=== PATIENT | female | born 1950 | race Caucasian/White ===

== ENCOUNTER → 2016-06-24 | Outpatient (CLI) | payer MEDICARE | END | disposition home or self-care (01) | LOC: LAB.O 10:06 | PROVIDERS: ATTEND Internal Medicine Pulmonary Disease | DX: Z94.2 Lung transplant status (principal); Z79.2 Long term (current) use of antibiotics ==

== ENCOUNTER → 2016-07-10 | Outpatient (CLI) | payer MEDICARE | END | disposition home or self-care (01) | LOC: LAB.O 08:50 | PROVIDERS: ATTEND Internal Medicine Pulmonary Disease | DX: Z94.2 Lung transplant status (principal); Z79.899 Other long term (current) drug therapy ==

== ENCOUNTER → 2016-08-28 | Outpatient (CLI) | payer MEDICARE | END | disposition home or self-care (01) | LOC: LAB.O 08:58 | PROVIDERS: ATTEND Internal Medicine Pulmonary Disease | DX: Z79.899 Other long term (current) drug therapy (principal); Z94.2 Lung transplant status ==

== ENCOUNTER → 2016-09-10 | Outpatient (CLI) | payer MEDICARE | END | disposition home or self-care (01) | LOC: GMAL 10:30 | PROVIDERS: ATTEND Family Medicine | DX: E05.00 Thyrotoxicosis with diffuse goiter without thyrotoxic crisis or storm (principal); E55.9 Vitamin D deficiency, unspecified; D51.3 Other dietary vitamin B12 deficiency anemia ==

== ENCOUNTER → 2016-10-22 | Outpatient (CLI) | payer MEDICARE ==
--- NOTE | 2016-10-22 11:55 | RAD ---
EXAM DESCRIPTION: UGI, Small Bowel follow-through CLINICAL HISTORY: 66 years Female, N/V COMPARISON: None. FINDINGS: Total exam dose 126.33 mGy, fluoroscopy time 2.6 minutes, 28 fluoroscopic images including 3 cine clips. There is no esophageal wall or fold thickening. No hiatal hernia is identified. There is no esophageal stricture or diverticulum. Images obtained in the prone BURLESON position show no esophageal dysmotility. No gastroesophageal reflux was observed during this exam. There is no gastric wall or fold thickening. The duodenum bulb and duodenum C-loop are unremarkable. Small bowel follow-through portion of the exam shows no small bowel wall or fold thickening. There is no small bowel dilation, stricture or filling defect. The terminal ileum and ileocecal junction are unremarkable. Oral contrast reached the cecum after approximately 15 minute transit time. IMPRESSION: Slightly rapid small bowel transit time, otherwise unremarkable exam. Electronically signed by: Steven Eisenberg MD 10/22/2016 11:55 AM CDT Workstation: [id number]
== END | disposition home or self-care (01) ==
LOC: RAD 10:48
PROVIDERS: ATTEND Family Medicine
DX: R10.9 Unspecified abdominal pain (principal); R11.0 Nausea

== ENCOUNTER → 2016-10-26 | Outpatient (CLI) | payer MEDICARE | END | disposition home or self-care (01) | LOC: GMAL 14:08 | PROVIDERS: ATTEND Family Medicine | DX: E06.3 Autoimmune thyroiditis (principal); R56.9 Unspecified convulsions ==

== ENCOUNTER 2017-06-12 09:57 | Emergency (ER) | payer MEDICARE, OTHER ==
--- NOTE | 2017-06-12 10:18 | ED.PDOC ---
History of Present Illness - General Chief Complaint: Lower Extremity Injury Stated Complaint: pain ankle right Time Seen by Provider: 06/12/17 10:13 Source: patient - History of Present Illness Initial Comments: Shelley Ervin 67 y/o female stated that while going down steps missed one lost her balance fell and twisted her right nakle and she was able to catch herself from totally falling.Had dull ache right ankle with pain on weight bearing.Had Lung transplant in [place] presently taking immunosuppressant drugs.Denies numbness or weakness. Occurred: just prior to arrival Pain - Lower Extremity: moderate: Right Ankle Method of Injury: twisted Improving Factors: rest Worsening Factors: movement Associated Symptoms: see hpi Allergies/Adverse Reactions: Allergies Metronidazole [From Flagyl] Allergy (Verified 06/12/17 10:24) Morphine Allergy (Verified 06/12/17 10:24) Home Medications: Ambulatory Orders ALPRAZolam [Xanax] 0.5 mg PO BEDTIME 06/12/17 Acetamin W/Cod #3 Tab [Tylenol w/CODEINE #3] 1 ea PO Q8HRS PRN #20 tab 06/12/17 Azithromycin [Zithromax] 500 mg PO MOWEFR 06/12/17 B-Complex W/ Folic Acid [B Complex] 1 tab PO DAILY 06/12/17 Biotin [Super Biotin] 5,000 mcg PO DAILY 06/12/17 Calcium Carbonate-Vitamin D [Calcium + D3 600-200 mg-Unit] 1 tab PO BID Gabapentin [Neurontin] 600 mg PO BID 06/12/17 Lamotrigine 100 mg PO DAILY 06/12/17 Lamotrigine 150 mg PO BEDTIME 06/12/17 Levothyroxine Sodium [Synthroid] 112 mcg PO DAILY 06/12/17 Magnesium [Magnesium 400 mg] 1 tab PO BID 06/12/17 Metoprolol Tartrate 25 mg PO BID 06/12/17 Multiple Vitamins W/ Minerals [Multivitamin Adults] 1 tab PO DAILY 06/12/17 Mycophenolate Mofetil [Cellcept] 750 mg PO BID 06/12/17 Nutritional Supplements [Estroven Pm] 1 tab PO BEDTIME 06/12/17 Pantoprazole Sodium 40 mg PO DAILY 06/12/17 Prednisone 15 mg PO DAILY 06/12/17 Sulfa/Trimeth 800/160 (Ds) Tab [Bactrim DS] 1 tablet PO MOWEFR 06/12/17 Sumatriptan Succinate [Imitrex] 100 mg PO PRN 06/12/17 Tacrolimus [Prograf] 2 mg PO BEDTIME 06/12/17 Tacrolimus [Prograf] 2.5 mg PO DAILY 06/12/17 Terbinafine HCl [Lamisil] 250 mg PO DAILY 06/12/17 Tramadol HCl 50 mg PO PRN 06/12/17 Valganciclovir HCl [Valganciclovir] 450 mg PO DAILY 06/12/17 Zinc 50 mg PO DAILY 06/12/17 Review of Systems - Review of Systems Constitutional: States: no symptoms reported EENTM: States: no symptoms reported Respiratory: States: no symptoms reported Cardiology: States: no symptoms reported Gastrointestinal/Abdominal: States: diarrhea - for 3 weeks treated for c.diff Genitourinary: States: no symptoms reported Musculoskeletal: States: see HPI Skin: States: no symptoms reported Neurological: States: no symptoms reported Hematologic/Lymphatic: States: anemia - from immunosuppressant drugs Past Medical History (General) - Patient Medical History Hx Hypertension: Yes Hx Other PMH: Yes - idiopathic pulmonary fibrosis,fibromyalgia Surgical History: other - lung transplant,c-spine,hysterectomy - Social History Hx Alcohol Use: No Hx Substance Use: No Hx Depression: No Feels Threatened In Home Enviroment: No Feels Threatened In a Relationship: No Hx Physical Abuse: No Hx Emotional Abuse: No Hx Suspected Abuse: No - Activities of Daily Living Patient Lives Alone: No - Grooming Ability: Standby Assistance Toileting Ability: Independent Family Medical History - Family History Mother Hx Family Asthma: Yes - dad-copd() Hx Family;Other: mom-multiple sclerosis and myasthenia gravis Father Family History: Unknown Living Status: Hx Family;Other: COPD Physical Exam - Physical Exam General Appearance: Alert, Comfortable, No apparent distress Eyes, Ears, Nose, Throat: PERRL/EOMI, normal ENT inspection, pharynx normal Neck: non-tender, full range of motion, supple Cardiovascular/Respiratory: regular rate, rhythm, no M/R/G, normal peripheral pulses Gastrointestinal/Abdominal: non-tender, no organomegaly Back: no CVA tenderness, no vertebral tenderness Thigh/Hip: normal inspection, non-tender Leg: non-tender, no evidence of injury Knee: non-tender, no evidence of injury Ankle: bone tenderness - right ankle, limited ROM - painful right ankle, pain - right ankle, soft tissue tenderness - righ ankle, swelling - right lateral malleolus Progress - Progress Progress: 06/12/17 10:27 Last Vital Signs Temp 97 F L 06/12/17 10:19 Pulse 58 L 06/12/17 10:19 Resp 20 06/12/17 10:19 BP 138/94 06/12/17 10:19 Pulse Ox 95 06/12/17 10:19 - EKG/XRAY/CT XRAY: ankle - right -fracture non displaced lateral malleolus Departure - Departure Clinical Impression: Fracture of lateral malleolus of right fibula Qualifiers: Encounter type: initial encounter Fracture type: closed Fracture alignment: nondisplaced Qualified Code(s): S82.64XA - Nondisplaced fracture of lateral malleolus of right fibula, initial encounter for closed fracture Time of Disposition: 11:09 Disposition: Discharge to Home or Self Care Condition: Fair Departure Forms: ED Discharge - Pt. Copy, Patient Portal Self Enrollment Instructions: DI for Ankle Fracture, Ankle Fracture Referrals: Dominic Lanza III, MD [Primary Care Provider] - 1-2 Weeks Prescriptions: Acetamin W/Cod #3 Tab [Tylenol w/CODEINE #3] 1 ea PO Q8HRS PRN #20 tab PRN Reason: Pain Home Medications: Ambulatory Orders ALPRAZolam [Xanax] 0.5 mg PO BEDTIME 06/12/17 Acetamin W/Cod #3 Tab [Tylenol w/CODEINE #3] 1 ea PO Q8HRS PRN #20 tab 06/12/17 Azithromycin [Zithromax] 500 mg PO MOWEFR 06/12/17 B-Complex W/ Folic Acid [B Complex] 1 tab PO DAILY 06/12/17 Biotin [Super Biotin] 5,000 mcg PO DAILY 06/12/17 Calcium Carbonate-Vitamin D [Calcium + D3 600-200 mg-Unit] 1 tab PO BID Gabapentin [Neurontin] 600 mg PO BID 06/12/17 Lamotrigine 100 mg PO DAILY 06/12/17 Lamotrigine 150 mg PO BEDTIME 06/12/17 Levothyroxine Sodium [Synthroid] 112 mcg PO DAILY 06/12/17 Magnesium [Magnesium 400 mg] 1 tab PO BID 06/12/17 Metoprolol Tartrate 25 mg PO BID 06/12/17 Multiple Vitamins W/ Minerals [Multivitamin Adults] 1 tab PO DAILY 06/12/17 Mycophenolate Mofetil [Cellcept] 750 mg PO BID 06/12/17 Nutritional Supplements [Estroven Pm] 1 tab PO BEDTIME 06/12/17 Pantoprazole Sodium 40 mg PO DAILY 06/12/17 Prednisone 15 mg PO DAILY 06/12/17 Sulfa/Trimeth 800/160 (Ds) Tab [Bactrim DS] 1 tablet PO MOWEFR 06/12/17 Sumatriptan Succinate [Imitrex] 100 mg PO PRN 06/12/17 Tacrolimus [Prograf] 2 mg PO BEDTIME 06/12/17 Tacrolimus [Prograf] 2.5 mg PO DAILY 06/12/17 Terbinafine HCl [Lamisil] 250 mg PO DAILY 06/12/17 Tramadol HCl 50 mg PO PRN 06/12/17 Valganciclovir HCl [Valganciclovir] 450 mg PO DAILY 06/12/17 Zinc 50 mg PO DAILY 06/12/17 Additional Instructions: Follow up with orthopedist of choice 06/14/2017;elevate right ankle 20 degrees at bedtime;ice pack to affected area 20 minutes 4 x a day during waking hours only for 5 days
[2017-06-12 10:24] VITALS: BP 138/94; TEMP 97; O2SAT 95
--- NOTE | 2017-06-12 10:42 | RAD ---
Procedure: XR ANKLE 3 OR MORE VIEWS Exam Date: 06/12/2017 10:25 AM PROGRAM LEAD Ordering Provider: Josleito Doan Clinical Indication: PAIN,SWELLING Comparison: None Findings: There is an obliquely oriented fracture involving the distal fibular diametaphysis. There is no significant displacement. There is 6 mm focus of mineralization within the volar aspect of the tibiotalar joint. This may represent a small displaced fracture fragment. Ankle mortise is symmetric. Soft tissue swelling overlying the lateral malleolus. IMPRESSION: Nondisplaced lateral malleolar fracture. 6 mm intra-articular loose body or more likely a nondisplaced fracture fragment just anterior to the tibiotalar joint space. This could be further assessed with MRI on a short-term basis as clinically warranted. Electronically signed by: Matthias Caraballo MD 06/12/2017 10:41 AM PROGRAM LEAD
[2017-06-12] MEDS ORDERED: HYDROcodone 7.5MG/APAP 325MG 1 EA TAB PO ONE (11:12)
== END 2017-06-12 11:47 | disposition home or self-care (01) ==
LOC: ER 09:57
DX: S82.64XA Nondisplaced fracture of lateral malleolus of right fibula, initial encounter for closed fracture (principal); M79.7 Fibromyalgia; Z94.2 Lung transplant status; I10 Essential (primary) hypertension; Z79.899 Other long term (current) drug therapy; W10.9XXA Fall (on) (from) unspecified stairs and steps, initial encounter; Y92.9 Unspecified place or not applicable

== ENCOUNTER → 2017-06-12 | Outpatient (CLI) | payer MEDICARE, OTHER | LOC: LAB.O 10:48 | PROVIDERS: ATTEND Family Medicine | DX: D70.8 Other neutropenia (principal); D80.3 Selective deficiency of immunoglobulin G [IgG] subclasses; R19.7 Diarrhea, unspecified; Z94.2 Lung transplant status; Z79.899 Other long term (current) drug therapy ==

== ENCOUNTER → 2017-06-16 | Outpatient (CLI) | payer MEDICARE, OTHER ==
--- NOTE | 2017-06-18 14:26 | RAD ---
EXAM DESCRIPTION: Ankle,Right 3 Views CLINICAL HISTORY: 67 years, Female, PAIN COMPARISON: None. TECHNIQUE: AP/lateral/oblique of the right ankle FINDINGS: Oblique fracture of the lateral malleolus is seen with slight lateral displacement of the distal fracture fragment approximately 2 mm. Talar dome and medial malleolus appear intact. Compared to previous study June 12, 2017, no change in alignment is evident. Lateral view shows intact talus and calcaneus. No mid foot malalignment. Small bone fragment is seen along the anterior aspect of the ankle joint and the donor site could be the distal tibia or fibula. IMPRESSION: Fracture distal right fibula with no change in alignment. Electronically signed by: Denilson Snyder MD 06/18/2017 2:25 PM [facility]
== END ==
LOC: RAD 07:42
PROVIDERS: ATTEND Orthopaedic Surgery
DX: S82.831A Other fracture of upper and lower end of right fibula, initial encounter for closed fracture (principal)

== ENCOUNTER → 2017-06-25 | Outpatient (CLI) | payer MEDICARE, OTHER ==
--- NOTE | 2017-06-25 09:21 | RAD ---
EXAM: Ankle,Right 3 Views HISTORY: CLOSED FX OF DISTAL FIBULA COMPARISON: June 16, 2017 TECHNIQUE: Three radiographic views of ankle FINDINGS: Stable appearance of nondisplaced fracture in distal fibula. Bony alignment in right ankle is grossly maintained. Slight cortical irregularity again seen along anterior aspect of tibial plafond. Ankle mortise remains intact. Joint spaces are maintained. No significant malleolus swelling on either side. Minimal joint effusion. IMPRESSION: Stable appearance of nondisplaced fracture in distal fibula, with cortical irregularity along the anterior aspect of tibial plafond. Electronically signed by: Sachin Ko MD 06/25/2017 9:20 AM [facility]
== END ==
LOC: RAD 08:18
PROVIDERS: ATTEND Orthopaedic Surgery
DX: S89.391A Other physeal fracture of lower end of right fibula, initial encounter for closed fracture (principal)

== ENCOUNTER → 2017-07-09 | Outpatient (CLI) | payer MEDICARE, OTHER ==
--- NOTE | 2017-07-09 18:19 | RAD ---
EXAM DESCRIPTION: Ankle,Right 3 Views CLINICAL HISTORY: 67 years, Female, CLOSED FX OF DISTAL FIBULA COMPARISON: Previous study June 25, 2017 TECHNIQUE: AP/lateral/oblique of the right ankle FINDINGS: Fractured distal right fibula/lateral malleolus extending into the ankle joint is unchanged in alignment compared to previous study. Demineralized appearance suggests hyperemia of healing. Subtle callous formation is evident. Medial malleolus appears intact. Soft tissue swelling laterally is mild. No fracture the metatarsal bases. Intact dome of the talus. Lateral view shows no evidence of fracture of the body of the talus or calcaneus. No calcaneal spurring is seen. No ankle joint narrowing or effusion. IMPRESSION: Healing right lateral malleolar fracture. Electronically signed by: Denilson Snyder MD 07/09/2017 6:18 PM [facility]
== END ==
LOC: RAD 08:43
PROVIDERS: ATTEND Orthopaedic Surgery
DX: S89.391D Other physeal fracture of lower end of right fibula, subsequent encounter for fracture with routine healing (principal)

== ENCOUNTER → 2017-07-22 | Outpatient (CLI) | payer MEDICARE, OTHER | LOC: GMAL 16:17 | PROVIDERS: ATTEND Family Medicine | DX: R19.7 Diarrhea, unspecified (principal) ==

== ENCOUNTER → 2017-08-06 | Outpatient (CLI) | payer MEDICARE, OTHER ==
--- NOTE | 2017-08-06 10:20 | RAD ---
EXAM: Ankle,Right 3 Views HISTORY: CLOSED FRACTURE OF DISTAL FIBULA COMPARISON: July 09, 2017 TECHNIQUE: Three radiographic views of ankle FINDINGS: Stable appearance of nondisplaced fracture in distal fibula. No new fracture nor dislocation in remainder of the ankle joint. Tibial plafond and ankle mortise are maintained. Joint spaces are maintained. Stable minimal lateral malleolar swelling with slight joint effusion. IMPRESSION: Stable appearance of distal fibular fracture, with minimal lateral malleolus swelling and slight joint effusion Electronically signed by: Sachin Ko MD 08/06/2017 10:18 AM CDT
== END | disposition home or self-care (01) ==
LOC: RAD 07:52
PROVIDERS: ATTEND Orthopaedic Surgery
DX: S89.391D Other physeal fracture of lower end of right fibula, subsequent encounter for fracture with routine healing (principal)

== ENCOUNTER → 2017-08-19 | Outpatient (CLI) | payer MEDICARE, OTHER | LOC: LAB.O 14:54 | PROVIDERS: ATTEND Internal Medicine Pulmonary Disease | DX: Z94.2 Lung transplant status (principal); Z79.899 Other long term (current) drug therapy ==

== ENCOUNTER 2017-09-06 05:27 | Day surgery (SDC) | payer MEDICARE, OTHER ==
[2017-09-06] MEDS ORDERED: LIDOCAINE 1% PF 2 ML AMP INJ ONE ×2 (05:28→07:23)
[2017-09-06] MEDS ORDERED: TROP 1%/CYCLOPEN 1%/PHENYL 2% DROPS ONE (05:57)
[2017-09-06] MEDS ORDERED: PROPARACAINE 0.5% OPHTH SOL 15 ML BTTL ONE (05:57)
[2017-09-06] MEDS ORDERED: MIDAZOLAM INJ 2 MG/2 ML VIAL ONE ×2 (06:48→07:14)
[2017-09-06] MEDS ORDERED: TOBRAMYCIN SULF 0.3 % OPHT SOL 1 DROP LEFT_EYE ONE ×4 (06:50→07:28)
[2017-09-06] MEDS ORDERED: PROPARACAINE 0.5% OPHTH SOL 15 ML BTTL LEFT_EYE ONE (07:11)
[2017-09-06] MEDS ORDERED: DEXAMETHASONE 0.1% OPHTH SOL 1 DROP LEFT_EYE ONE ×3 (07:24→07:28)
[2017-09-06] MEDS ORDERED: BRIMONIDINE 0.2% OPHTH DROPS LEFT_EYE ONE ×3 (07:24→07:28)
[2017-09-06 07:46] VITALS: TEMP 96.9
[2017-09-06 08:12] VITALS: BP 135/61; O2SAT 96
== END 2017-09-06 08:03 | disposition home or self-care (01) ==
LOC: AMB 05:27
PROVIDERS: ATTEND Ophthalmology
DX: H25.12 Age-related nuclear cataract, left eye (principal); J45.909 Unspecified asthma, uncomplicated; I10 Essential (primary) hypertension; I25.10 Atherosclerotic heart disease of native coronary artery without angina pectoris; K21.9 Gastro-esophageal reflux disease without esophagitis; E66.9 Obesity, unspecified; Z88.5 Allergy status to narcotic agent; Z79.899 Other long term (current) drug therapy
CPT/HCPCS: 00142; 66984; J2250

== ENCOUNTER → 2017-09-16 | Outpatient (CLI) | payer MEDICARE, OTHER ==
--- NOTE | 2017-09-16 15:06 | RAD ---
EXAM DESCRIPTION: Ankle,Right 3 Views CLINICAL HISTORY: 67 years, Female, CLOSED FX OF DISTAL TIB COMPARISON: Previous study August 06, 2017 TECHNIQUE: AP/lateral/oblique of the right ankle FINDINGS: Oblique fracture of the lateral malleolus is seen with bridging callus formation consistent with partial healing. Intact medial malleolus. There is mild soft tissue swelling laterally. Intact proximal metatarsals. Intact dome of the talus. Lateral view shows no evidence of fracture of the body of the talus or calcaneus. No calcaneal spurring is seen. No ankle joint narrowing, spurring or effusion. IMPRESSION: Healing fracture of the distal right fibula. Electronically signed by: Denilson Snyder MD 09/16/2017 3:04 PM CDT
== END ==
LOC: RAD 08:19
PROVIDERS: ATTEND Orthopaedic Surgery
DX: S89.391D Other physeal fracture of lower end of right fibula, subsequent encounter for fracture with routine healing (principal)

== ENCOUNTER → 2017-09-17 | Outpatient (CLI) | payer MEDICARE, OTHER | LOC: LAB.O 09:43 | PROVIDERS: ATTEND Family Medicine | DX: Z94.2 Lung transplant status (principal); Z79.899 Other long term (current) drug therapy ==

== ENCOUNTER 2017-09-20 05:16 | Day surgery (SDC) | payer MEDICARE, OTHER ==
[2017-09-20] MEDS ORDERED: PROPARACAINE 0.5% OPHTH SOL 15 ML BTTL ONE (05:49)
[2017-09-20] MEDS ORDERED: TROP 1%/CYCLOPEN 1%/PHENYL 2% DROPS ONE (05:49)
[2017-09-20] MEDS ORDERED: MIDAZOLAM INJ 2 MG/2 ML VIAL ONE ×3 (07:11→08:21)
[2017-09-20] MEDS ORDERED: LIDOCAINE 1% PF 2 ML AMP INJ ONE (07:36)
[2017-09-20] MEDS ORDERED: BRIMONIDINE 0.2% OPHTH DROPS RIGHT_EYE ONE ×2 (07:43→07:50)
[2017-09-20] MEDS ORDERED: DEXAMETHASONE 0.1% OPHTH SOL 1 DROP RIGHT_EYE ONE ×2 (07:43→07:50)
[2017-09-20] MEDS ORDERED: TOBRAMYCIN SULF 0.3 % OPHT SOL 1 DROP RIGHT_EYE ONE ×2 (07:43→07:50)
== END 2017-09-20 08:16 | disposition home or self-care (01) ==
LOC: AMB 05:16
PROVIDERS: ATTEND Ophthalmology
DX: H25.11 Age-related nuclear cataract, right eye (principal); I10 Essential (primary) hypertension; K21.9 Gastro-esophageal reflux disease without esophagitis; J45.909 Unspecified asthma, uncomplicated; G40.909 Epilepsy, unspecified, not intractable, without status epilepticus; Z87.891 Personal history of nicotine dependence; Z88.5 Allergy status to narcotic agent; Z79.899 Other long term (current) drug therapy
CPT/HCPCS: 00142; 66984; J2250

== ENCOUNTER → 2017-10-01 | Outpatient (CLI) | payer MEDICARE, OTHER | LOC: LAB.O 08:06 | PROVIDERS: ATTEND Internal Medicine Pulmonary Disease | DX: Z94.2 Lung transplant status (principal); Z79.899 Other long term (current) drug therapy ==

== ENCOUNTER → 2017-10-18 | Outpatient (CLI) | payer MEDICARE, OTHER | LOC: LAB.O 08:42 | PROVIDERS: ATTEND Family Medicine | DX: Z94.2 Lung transplant status (principal); Z79.899 Other long term (current) drug therapy ==

== ENCOUNTER → 2017-10-29 | Outpatient (CLI) | payer MEDICARE, OTHER | LOC: LAB.O 08:43 | PROVIDERS: ATTEND Family Medicine | DX: Z79.899 Other long term (current) drug therapy (principal); Z94.2 Lung transplant status ==

== ENCOUNTER → 2017-11-01 | Outpatient (CLI) | payer MEDICARE, OTHER ==
--- NOTE | 2017-11-01 09:14 | RAD ---
EXAM DESCRIPTION: Ankle,Right 3 Views CLINICAL HISTORY: 67 years, Female, CLOSED FX OF DISTAL FIBULA COMPARISON: September 16, 2017, August 06, 2017 TECHNIQUE: Three views right ankle FINDINGS: Slow progressive healing of an oblique fracture of the distal fibula at and just above the ankle mortise is present with minimal residual lucency evident on the oblique view. Bridging callus formation superolaterally is evident. Fracture line is clearly less apparent than seen on previous examination. Maturation of the callus is noted. IMPRESSION: 1. Slow progressive healing of distal fibular fracture with bridging callus evident and decreasing lucency at the fracture site. Complete bony union and resolution of the fracture line has not yet occurred. 2. Intact ankle mortise without new injury. Electronically signed by: Lio Sousa MD 11/01/2017 9:12 AM CDT
== END ==
LOC: RAD 08:25
PROVIDERS: ATTEND Orthopaedic Surgery
DX: S89.391D Other physeal fracture of lower end of right fibula, subsequent encounter for fracture with routine healing (principal)

== ENCOUNTER → 2017-11-05 | Outpatient (CLI) | payer MEDICARE, OTHER | LOC: LAB.O 09:19 | PROVIDERS: ATTEND Internal Medicine Pulmonary Disease | DX: Z94.2 Lung transplant status (principal); Z79.899 Other long term (current) drug therapy ==

== ENCOUNTER → 2017-11-12 | Outpatient (CLI) | payer MEDICARE, OTHER | LOC: LAB.O 09:41 | PROVIDERS: ATTEND Internal Medicine Pulmonary Disease | DX: K58.0 Irritable bowel syndrome with diarrhea (principal); Z94.2 Lung transplant status; Z79.899 Other long term (current) drug therapy ==

== ENCOUNTER → 2017-11-30 | Outpatient (CLI) | payer MEDICARE, OTHER | LOC: LAB.O 09:06 | PROVIDERS: ATTEND Internal Medicine Pulmonary Disease | DX: Z94.2 Lung transplant status (principal); Z79.899 Other long term (current) drug therapy ==

== ENCOUNTER → 2017-12-28 | Outpatient (CLI) | payer MEDICARE, OTHER ==
--- NOTE | 2017-12-28 20:51 | MRI ---
EXAM DESCRIPTION: Cervical Spine: MRI. CLINICAL HISTORY: RADICULOPATHY COMPARISON: Cervical spine MRI scan without and with gadolinium IV contrast 08/15/2010. TECHNIQUE: Multiplanar MRI, multiple sequences, non-contrast High-field.. Technically difficult study due to motion artifact. FINDINGS: ACDF C4-C5. Interbody fusion incomplete with low signal on T1 and T2 sequences. No abnormal fluid accumulation around the hardware. No abnormal marrow signal around the hardware. Right uncinate spur. Mild narrowing of the right neural foramen. Left neuroforamen patent. Canal is patent. Facets unremarkable. ACDF C6-C7. Interbody fusion is almost completely with signal similar to vertebral body bone. Canal and bilateral neural foramina are patent. No abnormal marrow signal around the screws or abnormal fluid accumulation. Normal signal in the facets. Minimal desiccation of the C3-4 disc. Tiny posterior bulge. Bilateral mild neural foraminal narrowing by uncinate spurs. No significant canal narrowing. Facets are unremarkable. C5-C6: Disc desiccation with disc space preserved. Posterior 2 mm bulge but not abutting the cord. Mild canal narrowing. Bilateral neural foramina are patent. Minimal arthrosis in the left facet. C7-T1: Normal signal in the disc with disc space preserved. No bulging. Bilateral facet arthrosis with mild narrowing of the bilateral neural foramina. No canal narrowing. Normal signal in the remaining discs with no bulging. Disc spaces preserved. Canal and neural foramina are patent. Facets are unremarkable. Spinal alignment shows lack of normal lordosis.. No cord compression or cord edema. Atlantoaxial joint is unremarkable. Base of the cerebellar tonsils is above the foramen magnum. Paravertebral soft tissues unremarkable. Vertebral bodies are not compressed at any level. Normal marrow signal in the remaining vertebral bodies and the posterior elements. IMPRESSION: 1. ACDF C4-C5 customary position and near-anatomic alignment. Incomplete bony fusion right uncinate spur and mild narrowing of the right neural foramen. No bony or hardware complications. 2. ACDF C6-C7. Interbody bone fusion is almost completely. Canal and bilateral neural foramina are patent. No bony or hardware complications. 3. Mild bilateral neural foraminal narrowing at C3-4 with minimal desiccation of the disc. Posterior midline bulge of the C5-6 disc with mild canal narrowing. No neural foraminal stenosis. Electronically signed by: Trell Mae MD 12/28/2017 8:50 PM CDT
== END ==
LOC: MRI 14:00
PROVIDERS: ATTEND Psychiatry & Neurology Neurology
DX: M50.11 Cervical disc disorder with radiculopathy, high cervical region (principal); M50.222 Other cervical disc displacement at C5-C6 level

== ENCOUNTER → 2017-12-30 | Outpatient (CLI) | payer MEDICARE, OTHER | LOC: GMAL 10:37 | PROVIDERS: ATTEND Family Medicine | DX: E06.3 Autoimmune thyroiditis (principal) ==

== ENCOUNTER → 2018-02-01 | Outpatient (CLI) | payer MEDICARE, OTHER | LOC: LAB.O 09:02 | PROVIDERS: ATTEND Internal Medicine Pulmonary Disease | DX: Z94.2 Lung transplant status (principal); Z79.899 Other long term (current) drug therapy ==

== ENCOUNTER → 2018-03-17 | Outpatient (CLI) | payer MEDICARE, OTHER | LOC: LAB.O 08:16 | PROVIDERS: ATTEND Internal Medicine Pulmonary Disease | DX: Z94.2 Lung transplant status (principal); Z79.899 Other long term (current) drug therapy ==

== ENCOUNTER → 2018-06-15 | Outpatient (CLI) | payer MEDICARE, OTHER | LOC: LAB.O 07:40 | PROVIDERS: ATTEND Internal Medicine Pulmonary Disease | DX: Z94.2 Lung transplant status (principal); Z79.899 Other long term (current) drug therapy ==

== ENCOUNTER → 2018-07-11 | Outpatient (CLI) | payer MEDICARE, OTHER | LOC: LAB.O 10:03 | PROVIDERS: ATTEND Internal Medicine Pulmonary Disease | DX: Z79.899 Other long term (current) drug therapy (principal); Z94.2 Lung transplant status ==

== ENCOUNTER 2018-08-08 05:52 | Day surgery (SDC) | payer MEDICARE, OTHER ==
[2018-08-08] MEDS ORDERED: MOXIFLOXACIN HCL (OPHTH) 1 DROP DROPS ONE (11:14)
[2018-08-08] MEDS ORDERED: TROP 1%/CYCLOPEN 1%/PHENYL 2% DROPS ONE (11:14)
[2018-08-08] MEDS ORDERED: PROPARACAINE 0.5% OPHTH SOL 15 ML BTTL ONE (11:14)
[2018-08-08] MEDS ORDERED: PROPARACAINE 0.5% OPHTH SOL 15 ML BTTL LEFT_EYE ONE (11:52)
== END 2018-08-08 12:00 | disposition home or self-care (01) ==
LOC: AMB 05:52
PROVIDERS: ATTEND Ophthalmology
DX: H26.492 Other secondary cataract, left eye (principal); Z88.5 Allergy status to narcotic agent; Z88.8 Allergy status to other drugs, medicaments and biological substances

== ENCOUNTER 2018-08-22 06:11 | Day surgery (SDC) | payer MEDICARE, OTHER ==
[2018-08-22] MEDS ORDERED: TROP 1%/CYCLOPEN 1%/PHENYL 2% DROPS ONE ×2 (09:09→12:07)
[2018-08-22] MEDS ORDERED: PROPARACAINE 0.5% OPHTH SOL 15 ML BTTL ONE ×2 (09:09→12:07)
[2018-08-22] MEDS ORDERED: MOXIFLOXACIN HCL (OPHTH) 1 DROP DROPS ONE ×2 (09:09→12:07)
[2018-08-22] MEDS ORDERED: PROPARACAINE 0.5% OPHTH SOL 15 ML BTTL RIGHT_EYE ONE (11:02)
== END 2018-08-22 11:06 | disposition home or self-care (01) ==
LOC: AMB 06:11
PROVIDERS: ATTEND Ophthalmology
DX: H26.491 Other secondary cataract, right eye (principal); Z88.5 Allergy status to narcotic agent; Z88.8 Allergy status to other drugs, medicaments and biological substances

== ENCOUNTER → 2018-08-25 | Outpatient (CLI) | payer MEDICARE, OTHER | LOC: LAB.O 09:06 | PROVIDERS: ATTEND Internal Medicine Pulmonary Disease | DX: R89.1 Abnormal level of hormones in specimens from other organs, systems and tissues (principal); Z94.2 Lung transplant status; Z79.899 Other long term (current) drug therapy ==

== ENCOUNTER → 2018-11-15 | Outpatient (CLI) | payer MEDICARE, OTHER | LOC: LAB.O 09:32 | PROVIDERS: ATTEND Internal Medicine Pulmonary Disease | DX: E34.9 Endocrine disorder, unspecified (principal); R53.82 Chronic fatigue, unspecified; Z79.899 Other long term (current) drug therapy; Z94.2 Lung transplant status ==

== ENCOUNTER → 2018-11-22 | Outpatient (CLI) | payer MEDICARE, OTHER | LOC: LAB.O 12:07 | PROVIDERS: ATTEND Family Medicine | DX: E34.9 Endocrine disorder, unspecified (principal); R53.82 Chronic fatigue, unspecified; Z79.899 Other long term (current) drug therapy ==

== ENCOUNTER 2018-12-13 09:24 | Emergency (ER) | payer MEDICARE, OTHER ==
[2018-12-13] MEDS ORDERED: HYDROcodone 5MG/APAP 325MG 1 EA TAB PO ONE (09:55)
--- NOTE | 2018-12-13 09:58 | ED.PDOC ---
History of Present Illness - General Chief Complaint: Respiratory Problem Stated Complaint: fever,cough Time Seen by Provider: 12/13/18 09:53 Source: patient Exam Limitations: no limitations - History of Present Illness Initial Comments: Patient presents with a cough for three days. She says she has coughed up some blood. She has a pain her right upper back since the coughing began. 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 + fever. + sore throat. No other complaints. Timing/Duration: other - 3 days Severity: moderate Improving Factors: movement Worsening Factors: rest Associated Symptoms: other - as in HPI Allergies/Adverse Reactions: Allergies Metronidazole [From Flagyl] Allergy (Verified 06/12/17 10:24) Morphine Allergy (Verified 06/12/17 10:24) Home Medications: Ambulatory Orders ALPRAZolam [Xanax] 0.5 mg PO BEDTIME 06/12/17 B-Complex W/ Folic Acid [B Complex] 1 tab PO DAILY 06/12/17 Biotin [Super Biotin] 5,000 mcg PO DAILY 06/12/17 Calcium Carbonate-Vitamin D [Calcium + D3 600-200 mg-Unit] 1 tab PO BID 06/12/17 Lamotrigine 100 mg PO BEDTIME 06/12/17 Levothyroxine Sodium [Synthroid] 112 mcg PO DAILY 06/12/17 Magnesium [Magnesium 400 mg] 1 tab PO BID 06/12/17 Multiple Vitamins W/ Minerals [Multivitamin Adults] 1 tab PO DAILY 06/12/17 Mycophenolate Mofetil [Cellcept] 2 capsule PO BID 06/12/17 Pantoprazole Sodium 40 mg PO DAILY 06/12/17 Prednisone 7.5 mg PO DAILY 06/12/17 Sulfa/Trimeth 800/160 (Ds) Tab [Bactrim DS] 1 tablet PO MOWEFR 06/12/17 Sumatriptan Succinate [Imitrex] 100 mg PO PRN PRN 06/12/17 Tacrolimus [Prograf] 1.5 mg PO DAILY 06/12/17 Tramadol HCl 50 mg PO Q4HR PRN 06/12/17 Zinc 50 mg PO DAILY 06/12/17 Acetaminophen [Tylenol] 2 tablet PO Q4HR PRN 12/13/18 Albuterol Sulfate [Proair Hfa] 2 puff INH Q6H PRN 12/13/18 Butalbital-Acetaminophen [Butalbital/Acetaminophen 50-300 mg] 1 tab PO Q6HR PRN 12/13/18 Cholecalciferol [Vitamin D-3] 5,000 unit PO DAILY 12/13/18 Colestipol HCl 1 gm PO DAILY 12/13/18 Furosemide [Lasix] 20 mg PO DAILY 12/13/18 Gabapentin 2 capsule PO BID 12/13/18 Hydralazine HCl [Hydralazine Hydrochloride] 10 mg PO BID 12/13/18 Ipratropium/Albuterol [Duoneb] 3 ml NEB QID PRN 12/13/18 Loperamide Cap [Imodium Cap] 2 mg PO QID PRN 12/13/18 Loratadine [Claritin] 10 mg PO DAILY 12/13/18 Nutritional Supplements [Estroven Pm] 1 tab PO BEDTIME 12/13/18 Propranolol HCl 60 mg PO BID 12/13/18 Risedronate Sodium [Actonel] 35 mg PO WKLY 12/13/18 Tacrolimus [Prograf] 2 mg PO DAILY 12/13/18 Valganciclovir HCl [Valcyte] 450 mg PO MOWEFR 12/13/18 Venlafaxine HCl 37.5 mg PO BID 12/13/18 Review of Systems - Review of Systems Constitutional: States: no symptoms reported EENTM: States: no symptoms reported Respiratory: States: see HPI Cardiology: States: no symptoms reported Gastrointestinal/Abdominal: States: no symptoms reported Genitourinary: States: no symptoms reported Musculoskeletal: States: no symptoms reported Skin: States: no symptoms reported Neurological: States: no symptoms reported Endocrine: States: no symptoms reported Hematologic/Lymphatic: States: no symptoms reported Past Medical History (General) - Patient Medical History Hx Seizures: Yes Hx Stroke: Yes - TIA Hx Asthma: Yes Hx of COPD: Yes Hx Congestive Heart Failure: No Hx Hypertension: Yes Hx Thyroid Disease: Yes Hx Diabetes: No Hx Gastroesophageal Reflux: Yes Hx MRSA: No Surgical History: Hysterectomy - Vaccination History Hx Influenza Vaccination: Yes Hx Pneumococcal Vaccination: Yes - Social History Hx Tobacco Use: Yes Hx Alcohol Use: No Hx Substance Use: No Hx Depression: No Hx Physical Abuse: No Hx Emotional Abuse: No Hx Suspected Abuse: No Family Medical History - Family History Mother Hx Family Asthma: Yes - dad-copd() Hx Family;Other: mom-multiple sclerosis and myasthenia gravis Father Family History: Unknown Living Status: Hx Family;Other: COPD Physical Exam - Physical Exam General Appearance: Alert Eye Exam: bilateral normal Ears, Nose, Throat: normal ENT inspection Neck: non-tender, full range of motion, supple Respiratory: lungs clear, normal breath sounds Cardiovascular/Chest: normal peripheral pulses, regular rate, rhythm Gastrointestinal/Abdominal: normal bowel sounds, non tender, soft Back Exam: normal inspection Extremity: normal range of motion, non-tender, normal inspection Progress - Progress Progress: 12/13/18 16:03 Laboratory Tests 12/13/18 12/13/18 12/13/18 10:05 10:30 10:30 WBC 16.2 H RBC 3.87 L Hgb 13.1 Hct 38.0 MCV 98.3 MCH 34.0 H MCHC 34.6 RDW 13.2 Plt Count 216 MPV 6.9 L Absolute Neuts (auto) 13.90 H Absolute Lymphs (auto) 1.00 Absolute Monos (auto) 1.20 H Absolute Eos (auto) 0.10 Absolute Basos (auto) 0.10 Neutrophils % 86.0 H Lymphocytes % 6.0 L Monocytes % 7.2 Eosinophils % 0.5 L Basophils % 0.3 Sodium 135 Potassium 3.9 Chloride 99 L Carbon Dioxide 24 Anion Gap 15.9 BUN 30 H Creatinine 2.31 H BUN/Creatinine Ratio 13.0 Random Glucose 150 H Serum Osmolality 279.1 Lactic Acid Calcium 9.0 Total Bilirubin 1.2 H AST 18 ALT 13 Alkaline Phosphatase 69 Serum Total Protein 6.6 Albumin 4.0 Globulin 2.6 Albumin/Globulin Ratio 1.5 Group A Strep Rapid Negative 12/13/18 11:56 WBC RBC Hgb Hct MCV MCH MCHC RDW Plt Count MPV Absolute Neuts (auto) Absolute Lymphs (auto) Absolute Monos (auto) Absolute Eos (auto) Absolute Basos (auto) Neutrophils % Lymphocytes % Monocytes % Eosinophils % Basophils % Sodium Potassium Chloride Carbon Dioxide Anion Gap BUN Creatinine BUN/Creatinine Ratio Random Glucose Serum Osmolality Lactic Acid 1.0 Calcium Total Bilirubin AST ALT Alkaline Phosphatase Serum Total Protein Albumin Globulin Albumin/Globulin Ratio Group A Strep Rapid CXR showed right sided pneumonia. wbc 16.2. blood and sputum cultures taken. Patient given Rocephin 1 gram IV and Azithromycin 500 mg po. I contacted Dr. Aguirre, her mannequin mounter at [facility] and he recommended transfer to [facility]. They were full at the time of our contact with bed control so called Dr. Aguirre back. He recommended Vancomycin and Cefepime in the meantime. That was given. I called Ashwin Glover about possible admission here and after he consulted with Dr. Parsons, he decided that the patient would be better off transferred. Shortly after that conversation, [facility] called back and said that they had a bed available. Patient was transferred by ambulance to Dr. Aguirre. Departure - Departure Clinical Impression: Pneumonia Disposition: Transfer to Hospital Condition: Fair Departure Forms: ED Discharge - Pt. Copy, Patient Portal Self Enrollment Diet: other - as per hospitalist Activity: as per physical therapy Referrals: Dominic Lanza III, MD [Primary Care Provider] - 1-2 Weeks Home Medications: Ambulatory Orders ALPRAZolam [Xanax] 0.5 mg PO BEDTIME 06/12/17 B-Complex W/ Folic Acid [B Complex] 1 tab PO DAILY 06/12/17 Biotin [Super Biotin] 5,000 mcg PO DAILY 06/12/17 Calcium Carbonate-Vitamin D [Calcium + D3 600-200 mg-Unit] 1 tab PO BID 06/12/17 Lamotrigine 100 mg PO BEDTIME 06/12/17 Levothyroxine Sodium [Synthroid] 112 mcg PO DAILY 06/12/17 Magnesium [Magnesium 400 mg] 1 tab PO BID 06/12/17 Multiple Vitamins W/ Minerals [Multivitamin Adults] 1 tab PO DAILY 06/12/17 Mycophenolate Mofetil [Cellcept] 2 capsule PO BID 06/12/17 Pantoprazole Sodium 40 mg PO DAILY 06/12/17 Prednisone 7.5 mg PO DAILY 06/12/17 Sulfa/Trimeth 800/160 (Ds) Tab [Bactrim DS] 1 tablet PO MOWEFR 06/12/17 Sumatriptan Succinate [Imitrex] 100 mg PO PRN PRN 06/12/17 Tacrolimus [Prograf] 1.5 mg PO DAILY 06/12/17 Tramadol HCl 50 mg PO Q4HR PRN 06/12/17 Zinc 50 mg PO DAILY 06/12/17 Acetaminophen [Tylenol] 2 tablet PO Q4HR PRN 12/13/18 Albuterol Sulfate [Proair Hfa] 2 puff INH Q6H PRN 12/13/18 Butalbital-Acetaminophen [Butalbital/Acetaminophen 50-300 mg] 1 tab PO Q6HR PRN 12/13/18 Cholecalciferol [Vitamin D-3] 5,000 unit PO DAILY 12/13/18 Colestipol HCl 1 gm PO DAILY 12/13/18 Furosemide [Lasix] 20 mg PO DAILY 12/13/18 Gabapentin 2 capsule PO BID 12/13/18 Hydralazine HCl [Hydralazine Hydrochloride] 10 mg PO BID 12/13/18 Ipratropium/Albuterol [Duoneb] 3 ml NEB QID PRN 12/13/18 Loperamide Cap [Imodium Cap] 2 mg PO QID PRN 12/13/18 Loratadine [Claritin] 10 mg PO DAILY 12/13/18 Nutritional Supplements [Estroven Pm] 1 tab PO BEDTIME 12/13/18 Propranolol HCl 60 mg PO BID 12/13/18 Risedronate Sodium [Actonel] 35 mg PO WKLY 12/13/18 Tacrolimus [Prograf] 2 mg PO DAILY 12/13/18 Valganciclovir HCl [Valcyte] 450 mg PO MOWEFR 12/13/18 Venlafaxine HCl 37.5 mg PO BID 12/13/18
--- NOTE | 2018-12-13 10:34 | RAD ---
EXAM DESCRIPTION: Chest,2 Views CLINICAL HISTORY: 68 years Female, cough, fever COMPARISON: CT chest dated September 06, 2014. TECHNIQUE: PA and lateral radiographs of the chest were obtained. FINDINGS: The trachea is deviated slightly to the right. The cardiomediastinal silhouette is within normal limits. The pulmonary vasculature appears grossly unremarkable. Interval development of interstitial and infiltrative changes scattered throughout the right lung more predominantly involving the right upper lobe and lower lobes concerning for underlying pneumonia. No pleural effusions. IMPRESSION: 1. Interval development of patchy interstitial and infiltrative changes scattered throughout the right lung predominantly involving right upper and lower lobes is concerning for underlying pneumonia. Comparison was made to the prior chest CT dated September 06, 2014. 2. No pleural effusions. Electronically signed by: Elie Joe MD 12/13/2018 10:33 AM CDT
[2018-12-13] MEDS ORDERED: cefTRIAXone SODIUM 1 GM in SODIUM CHL 0.9% 50ML MIN-BAG+ 50 ML IVPB ONE (11:40)
[2018-12-13] MEDS ORDERED: AZITHROMYCIN 250 MG TAB PO ONE (11:41)
[2018-12-13] MEDS ORDERED: SODIUM CHLORIDE 0.9% 1000ML 1,000 ML IVS ONE (11:41)
[2018-12-13] MEDS ORDERED: cefTRIAXone SODIUM 1 GM VIAL ONE (11:51)
[2018-12-13] MEDS ORDERED: SODIUM CHL 0.9% 50ML MIN-BAG+ 50 ML IVPB ONE (11:51)
[2018-12-13] MEDS ORDERED: SODIUM CHLORIDE 0.9% 1000ML 1,000 ML IVS PRN (12:52)
[2018-12-13] MEDS ORDERED: VANCOMYCIN HCL INJ 1,000 MG in SODIUM CHLORIDE 0.9% 250ML 250 ML IVPB ONE (15:22)
[2018-12-13] MEDS ORDERED: CEFEPIME 1 GM in SODIUM CHLORIDE 0.9% 50ML 50 ML IVPB ONE (15:23)
[2018-12-13] MEDS ORDERED: SODIUM CHLORIDE 0.9% 50ML 50 ML ONE (15:29)
[2018-12-13] MEDS ORDERED: CEFEPIME 2 GM VIAL ONE (15:29)
[2018-12-13] MEDS ORDERED: VANCOMYCIN HCL INJ 1,000 MG VIAL IVPB ONE (15:56)
[2018-12-13] MEDS ORDERED: SODIUM CHLORIDE 0.9% 250ML 250 ML ONE (15:56)
[2018-12-13 16:26] VITALS: BP 100/57; TEMP 97.9; O2SAT 96
== END 2018-12-13 16:26 | disposition short-term general hospital (02) ==
LOC: ER 09:24
DX: J18.9 Pneumonia, unspecified organism (principal); J44.9 Chronic obstructive pulmonary disease, unspecified; I10 Essential (primary) hypertension; E07.9 Disorder of thyroid, unspecified; K21.9 Gastro-esophageal reflux disease without esophagitis; R56.9 Unspecified convulsions; Z94.2 Lung transplant status; Z87.891 Personal history of nicotine dependence; Z86.73 Personal history of transient ischemic attack (TIA), and cerebral infarction without residual deficits; Z79.899 Other long term (current) drug therapy; Z88.1 Allergy status to other antibiotic agents; Z88.5 Allergy status to narcotic agent
CPT/HCPCS: 36415; 71046; 80053; 83605; 85025; 87040; 87070; 87880; A4216; J0692; J0696; J3370; J7030; J7050; Q0144

== ENCOUNTER → 2019-05-16 | Outpatient (CLI) | payer MEDICARE, OTHER ==
--- NOTE | 2019-05-17 17:57 | MRI ---
EXAM DESCRIPTION: Brain w/o Contrast: MRI. 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 MRI scan of the cervical spine the following day. TECHNIQUE: Multiplanar, high-field MRI unit, multiple diffusion sequences, multiple conventional sequences without contrast. Technically difficult study due to patient motion on multiple sequences. FINDINGS: Bilateral multifocal hyperintense FLAIR and T2-weighted signal in the subcortical white matter frontal parietal and occipital lobes more left than right. Lesion in the right frontal subcortical brain in the vertex is stable. Confluent lesions with similar signal abutting the bilateral ventricular bodies also involving the same lobes symmetric bilaterally.. No hemorrhage, no cerebral edema, no mass-effect. No diffusion restriction. Normal signal in the bilateral basal ganglia. Multifocal hyperintense FLAIR signal more than T2 weighted signal in the [place] of the brainstem is stable since the prior study. No hemorrhage mass effect or diffusion restriction. Normal signal in the bilateral cerebellar hemispheres. No hemorrhage, no parenchymal edema, no mass-effect. Concordance of the diffusion and non-diffusion sequences with no diffusion restriction. Cortical sulci, ventricles, and other CSF spaces, and the subdural spaces are normally configured for patients age. No effacement or displacement. Stable since the prior study. No midline shift. No extra-axial hemorrhage. No change from the prior study. Normal flow signal void in the major vessels of the [place], and the venous sinuses. IACs are symmetric bilaterally. Minimal fluid signal in the left mastoid air cells. Stable since the prior study. No mass effect in the bilateral cerebellopontine angles. Pituitary gland occupies most of the sella. Base of the cerebellar tonsils is above the foramen magnum. Paranasal sinuses are unremarkable.. The bony calvarium is intact. IMPRESSION: 1. Subcortical white matter lesions predominantly bilaterally in the frontoparietal and occipital lobes and more left than right. Fewer confluent periventricular white matter lesions. No association with mass effect, hemorrhage, or diffusion restriction. Stable since the prior study. 2. No lesions in the basal ganglia. Small punctate lesions in the [place] are stable. No hemorrhage. Electronically signed by: Trell Mae MD 05/17/2019 5:56 PM [facility]
== END ==
LOC: MRI 12:58
PROVIDERS: ATTEND Psychiatry & Neurology Neurology
DX: F01.50 Vascular dementia, unspecified severity, without behavioral disturbance, psychotic disturbance, mood disturbance, and anxiety (principal); R90.82 White matter disease, unspecified

== ENCOUNTER → 2019-05-17 | Outpatient (CLI) | payer MEDICARE, OTHER ==
--- NOTE | 2019-05-18 16:48 | MRI ---
EXAM DESCRIPTION: Cervical Spine: MRI. CLINICAL HISTORY: 69 years Female RADICULOPATHY COMPARISON: MRI scan of the cervical spine without gadolinium IV contrast December 2017. TECHNIQUE: Multiplanar, high-field MRI, multiple sequences, non-contrast Cervical spine. FINDINGS: ACDF C4-C7. Magnetic susceptibility artifact associated with the hardware. No soft tissue edema, bone marrow edema, soft tissue mass, or abnormal fluid associated with the hardware. No bony fusion of the disc spaces at C4-C5 or C5-C6. No significant disc space loss. Interbody osseous fusion C6-C7. Canal and right neuroforamen are patent. Spur encroaching on the left neural foramen with moderate to severe narrowing. C3-C4: Disc desiccation and minimal disc space loss. Tiny posterior bulge. Bilateral uncinate spurs. Moderate to severe right neural foraminal narrowing. Left neuroforamen patent. C7-T1: Normal signal in the disc with disc space preserved. Canal patent. Bilateral neural foraminal narrowing by hypertrophic facet arthrosis. Normal signal in the C2-C3 and T1-T2 discs with no bulging. Disc spaces preserved. Canal and neural foramina are patent. Facet joints are unremarkable. Spinal alignment reduced lordosis.. No cord compression or cord edema. Atlantoaxial joint minimal fluid and hypertrophy.. Base of the cerebellar tonsils is at the level of the foramen magnum. Paravertebral soft tissues are negative. Vertebral bodies are not compressed at any level. Normal marrow signal in the remaining vertebral bodies and the posterior elements. IMPRESSION: 1. ACDF C4-C7 with no bony or hardware complications. Spurs are encroaching on the left neural foramina at C6-C7 with moderate to severe narrowing. Correlate for left C7 radiculopathy. Similar to the prior study. 2. Moderate to severe right neural foraminal narrowing at C3-C4 due to right uncinate 8 spurs. Progressed since the prior study. Correlate for right C4 radiculopathy. Electronically signed by: Trell Mae MD 05/18/2019 4:46 PM [facility]
== END ==
LOC: MRI 13:00
PROVIDERS: ATTEND Psychiatry & Neurology Neurology
DX: M50.11 Cervical disc disorder with radiculopathy, high cervical region (principal); M43.22 Fusion of spine, cervical region; M25.78 Osteophyte, vertebrae; M48.02 Spinal stenosis, cervical region

== ENCOUNTER → 2019-07-12 | Outpatient (CLI) | payer MEDICARE, OTHER | DX: Z94.2 Lung transplant status (principal); Z79.899 Other long term (current) drug therapy ==

== ENCOUNTER → 2019-10-27 | Outpatient (CLI) | payer MEDICARE, OTHER ==
[~2019-10-27] MED LIST: ALBUTEROL SULFATE 2.5 MG/3 ML VIAL NEB ONE
== END ==
LOC: RESP 09:56
PROVIDERS: ATTEND Family Medicine
DX: Z94.2 Lung transplant status (principal); E06.9 Thyroiditis, unspecified; D51.3 Other dietary vitamin B12 deficiency anemia; E55.9 Vitamin D deficiency, unspecified; Z79.899 Other long term (current) drug therapy
CPT/HCPCS: 80197; 82306; 82607; 84439; 84443; 84481; 94060; J7611

== ENCOUNTER → 2020-01-30 | Outpatient (CLI) | payer MEDICARE, OTHER | LOC: LAB.O 09:08 | PROVIDERS: ATTEND Internal Medicine Pulmonary Disease | DX: Z94.2 Lung transplant status (principal); Z79.899 Other long term (current) drug therapy ==

== ENCOUNTER → 2020-03-08 | Outpatient (CLI) | payer MEDICARE, OTHER | LOC: LAB.O 12:09 | PROVIDERS: ATTEND Psychiatry & Neurology Neurology | DX: Z94.2 Lung transplant status (principal); G37.9 Demyelinating disease of central nervous system, unspecified; R53.83 Other fatigue; R50.9 Fever, unspecified; M79.7 Fibromyalgia; L81.2 Freckles; M10.9 Gout, unspecified; G44.1 Vascular headache, not elsewhere classified; Z79.899 Other long term (current) drug therapy; M35.1 Other overlap syndromes; G35 Multiple sclerosis; G70.00 Myasthenia gravis without (acute) exacerbation; G04.89 Other myelitis; M54.81 Occipital neuralgia; H46.9 Unspecified optic neuritis; M15.0 Primary generalized (osteo)arthritis; M81.8 Other osteoporosis without current pathological fracture; R53.81 Other malaise; Z74.09 Other reduced mobility; M35.3 Polymyalgia rheumatica; M33.22 Polymyositis with myopathy; G61.81 Chronic inflammatory demyelinating polyneuritis; M54.12 Radiculopathy, cervical region; M54.16 Radiculopathy, lumbar region; I73.00 Raynaud's syndrome without gangrene; G25.89 Other specified extrapyramidal and movement disorders; M06.9 Rheumatoid arthritis, unspecified; D86.9 Sarcoidosis, unspecified; M32.10 Systemic lupus erythematosus, organ or system involvement unspecified; M31.6 Other giant cell arteritis ==

== ENCOUNTER → 2020-03-14 | Outpatient (CLI) | payer MEDICARE, OTHER ==
--- NOTE | 2020-03-15 09:04 | MRI ---
EXAM DESCRIPTION: MRA Head and/or Neck CLINICAL HISTORY: cerebrovascular disease COMPARISON: MRI scan of the brain without contrast May 16. TECHNIQUE: 2D [id number] thin-section axial acquisitions through the brain: Non contrast. MIP reconstructions. FINDINGS: The inferior images of the exam began at the level of the petrous segments of the ICAs. No significant narrowing or stenosis of the petrous segments, cavernous segments, or the segments in the siphon and supraclinoid segments bilaterally. Normal bifurcations to form the middle and anterior cerebral arteries. Anterior communicating artery is patent. Prominent right posterior communicating artery from the right supraclinoid ICA to joint with the right posterior cerebral artery. Only a small contribution to the Post-comm-a from the basilar artery. Left posterior communicating artery not visualized. Distal vertebral arteries join to form the basilar artery to the right of midline. PICA vessels are not seen. Left anterior-inferior cerebellar artery is visualized. Bilateral superior cerebellar arteries are visualized. Most of the basilar artery becomes the left posterior cerebral artery. Small contribution to the right posterior cerebral artery as previously described. No significant stenosis or occlusion, no aneurysm, no mass effect, no vasculitis anterior or posterior circulation, or [place]. IMPRESSION: No significant abnormalities in the anterior posterior circulation. Right posterior communicating artery from the right supraclinoid ICA supplies most of the flow to the right posterior cerebral artery, with minimal contribution from the basilar artery. The posterior communicating artery is not visualized. Electronically signed by: Trell Mae MD 03/15/2020 9:[address] [facility]
== END ==
LOC: MRI 09:00
PROVIDERS: ATTEND Psychiatry & Neurology Neurology
DX: G93.40 Encephalopathy, unspecified (principal); I77.89 Other specified disorders of arteries and arterioles; I67.9 Cerebrovascular disease, unspecified; R41.3 Other amnesia; R41.0 Disorientation, unspecified; G60.3 Idiopathic progressive neuropathy; M51.16 Intervertebral disc disorders with radiculopathy, lumbar region; I10 Essential (primary) hypertension

== ENCOUNTER → 2020-03-26 | Outpatient (CLI) | payer MEDICARE, OTHER ==
--- NOTE | 2020-03-26 14:28 | MRI ---
EXAM: Brain w/oContrast CLINICAL HISTORY: ENCEPHALOPATHY COMPARISON STUDY: MRI brain from a 05/17/2019 TECHNICAL: Multi-sequence, multiplanar non-contrast MRI images were acquired through the brain. FINDINGS: No acute abnormality on the diffusion weighted scan. There is no finding to suggest an acute territorial infarction. There are mild subcortical white matter changes that are similar to the prior study. Two focal punctate areas of signal abnormality are seen within the [place] and also unchanged. There is no mass or mass effect. There is no evidence for hemorrhage. Flow voids are seen within the expected intracranial vessels. Posterior fossa and midline structures are negative. IMPRESSION: 1. No acute intracranial abnormality. 2. Mild bilateral subcortical white matter changes. Differential possibilities of demyelinating process, microvascular ischemic change or other chronic white matter disease. Electronically signed by: Cain Colby MD 03/26/2020 2:26 PM [facility]
== END ==
LOC: MRI 09:59
PROVIDERS: ATTEND Psychiatry & Neurology Neurology
DX: G93.40 Encephalopathy, unspecified (principal); I67.9 Cerebrovascular disease, unspecified; R90.82 White matter disease, unspecified

== ENCOUNTER 2020-04-05 10:29 | Emergency (ER) | payer MEDICARE, OTHER ==
[2020-04-05] MEDS ORDERED: SODIUM CHLORIDE 0.9% (FLUSH) 10 ML SYG IV PRN (10:37)
--- NOTE | 2020-04-05 10:39 | ED.PDOC ---
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 Onset last night, constant since then, describes it as sharp pains in the center of her chest which radiate bilaterally around to her back, currently 6/10 sever ity, worse with taking a deep breath, tried taking her home inhaler without relief. Denies any dyspnea, cough, fevers, chills, sore throat, congestion, abdominal pain, nausea/vomiting/diarrhea. Patient reports history of idiopathic pulmonary fibrosis and underwent left lung transplant in October [address] Ashwin Sen at [facility] in [place]. 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 She is on daily CellCept, Prograf, prednisone. Denies any known cardiac history. Allergies/Adverse Reactions: Allergies Metronidazole [From Flagyl] Allergy (Verified 06/12/17 10:24) Morphine Allergy (Verified 06/12/17 10:24) Home Medications: Ambulatory Orders ALPRAZolam [Xanax] 0.5 mg PO BEDTIME 06/12/17 B-Complex W/ Folic Acid [B Complex] 1 tab PO DAILY 06/12/17 Biotin [Super Biotin] 5,000 mcg PO DAILY 06/12/17 Calcium Carbonate-Vitamin D [Calcium + D3 600-200 mg-Unit] 1 tab PO BID 06/12/17 Lamotrigine 100 mg PO BEDTIME 06/12/17 Levothyroxine Sodium [Synthroid] 112 mcg PO DAILY 06/12/17 Magnesium [Magnesium 400 mg] 1 tab PO BID 06/12/17 Multiple Vitamins W/ Minerals [Multivitamin Adults] 1 tab PO DAILY 06/12/17 Mycophenolate Mofetil [Cellcept] 2 capsule PO BID 06/12/17 Pantoprazole Sodium 40 mg PO DAILY 06/12/17 Prednisone 7.5 mg PO DAILY 06/12/17 Sulfa/Trimeth 800/160 (Ds) Tab [Bactrim DS] 1 tablet PO MOWEFR 06/12/17 Sumatriptan Succinate [Imitrex] 100 mg PO PRN PRN 06/12/17 Tacrolimus [Prograf] 1.5 mg PO DAILY 06/12/17 Tramadol HCl 50 mg PO Q4HR PRN 06/12/17 Zinc 50 mg PO DAILY 06/12/17 Acetaminophen [Tylenol] 2 tablet PO Q4HR PRN 12/13/18 Albuterol Sulfate [Proair Hfa] 2 puff INH Q6H PRN 12/13/18 Butalbital-Acetaminophen [Butalbital/Acetaminophen 50-300 mg] 1 tab PO Q6HR PRN 12/13/18 Cholecalciferol [Vitamin D-3] 5,000 unit PO DAILY 12/13/18 Colestipol HCl 1 gm PO DAILY 12/13/18 Furosemide [Lasix] 20 mg PO DAILY 12/13/18 Gabapentin 2 capsule PO BID 12/13/18 Hydralazine HCl [Hydralazine Hydrochloride] 10 mg PO BID 12/13/18 Ipratropium/Albuterol [Duoneb] 3 ml NEB QID PRN 12/13/18 Loperamide Cap [Imodium Cap] 2 mg PO QID PRN 12/13/18 Loratadine [Claritin] 10 mg PO DAILY 12/13/18 Nutritional Supplements [Estroven Pm] 1 tab PO BEDTIME 12/13/18 Propranolol HCl [Propranolol Hydrochloride] 60 mg PO BID 12/13/18 Risedronate Sodium [Actonel] 35 mg PO WKLY 12/13/18 Tacrolimus [Prograf] 2 mg PO DAILY 12/13/18 Valganciclovir HCl [Valcyte] 450 mg PO MOWEFR 12/13/18 Venlafaxine HCl 37.5 mg PO BID 12/13/18 Review of Systems - Review of Systems Review of Systems: 04/05/20 11:13 as per HPI All other Systems: Reviewed and Negative Past Medical History (General) - Patient Medical History Hx Seizures: Yes Hx Stroke: Yes - TIA Hx Asthma: Yes Hx of COPD: Yes Hx Congestive Heart Failure: No Hx Hypertension: Yes Hx Thyroid Disease: Yes Hx Diabetes: No Hx Gastroesophageal Reflux: Yes Hx MRSA: No - Vaccination History Hx Influenza Vaccination: Yes Hx Pneumococcal Vaccination: Yes - Social History Hx Tobacco Use: Yes Hx Alcohol Use: No Hx Substance Use: No Hx Depression: No Hx Physical Abuse: No Hx Emotional Abuse: No Hx Suspected Abuse: No Family Medical History - Family History Mother Hx Family Asthma: Yes - dad-copd() Hx Family;Other: mom-multiple sclerosis and myasthenia gravis Father Family History: Unknown Living Status: Hx Family;Other: COPD Physical Exam - Physical Exam General Appearance: Alert, Comfortable, No apparent distress Eye Exam: bilateral normal Ears, Nose, Throat: hearing grossly normal, normal ENT inspection, normal pharynx Neck: non-tender, full range of motion, normal inspection Respiratory: no respiratory distress, no accessory muscle use, rales - Faint bibasilar crackles w/o wheezing/rhonchi, other - chest wall markedly ttp throughout, upper back also with ttp w/o deformity/bruising Cardiovascular/Chest: normal peripheral pulses, regular rate, rhythm, no edema, no gallop, no JVD, no murmur Peripheral Pulses: radial,right: 2+, radial,left: 2+ Gastrointestinal/Abdominal: non tender, soft, no organomegaly Back Exam: normal inspection Extremity: normal range of motion, non-tender, normal inspection, no pedal edema, no calf tenderness, normal capillary refill 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 Consider also ACS, PE, pneumonia, graft failure, viral infection, COVID-19, flu, other -Patient stable, no acute distress, vitals normal -Obtain stat cardiac and lung work-up, rapid Covid and flu testing 04/05/20 15:20 -Patient has remained stable, reports pain is resolved with ED treatment. Her cardiac work-up is unremarkable. Her chest x-ray does reveal chronic right- sided interstitial opacities which are unchanged. She is without fever and blood work appears unremarkable. Flu & COVID testing negative. Discussed all findings with patient. Suspect musculoskeletal inflammatory chest wall pain and advised continued home treatment with Tylenol and tramadol as needed. Follow- up closely with her regular doctors and specialist. -Discharged home in good condition, return warnings discussed at length Flo King MD Billing #[id number] 04/05/20 10:37 Sodium Chloride 0.9% (Flush) [Saline Flush Syringe] 10 ml IV PRN PRN Pulse Oximetry Assessment DAILY 12/04/20 10:45 EKG STAT 04/05/20 12:45 EKG STAT 04/06/20 09:00 Pulse Ox Daily Laboratory Results - last 24 hr 04/05/20 04/05/20 04/05/20 11:00 11:00 11:00 WBC 10.4 RBC 4.18 L Hgb 14.2 Hct 40.5 MCV 96.9 MCH 34.1 H MCHC 35.2 RDW 13.4 Plt Count 216 MPV 7.2 L Absolute Neuts (auto) 8.60 H Absolute Lymphs (auto) 0.90 L Absolute Monos (auto) 0.70 Absolute Eos (auto) 0.10 Absolute Basos (auto) 0.10 Neutrophils % 82.6 H Lymphocytes % 8.7 L Monocytes % 7.0 Eosinophils % 1.2 Basophils % 0.5 ESR D-Dimer, Quantitative 136.0 Sodium 137 Potassium 3.6 Chloride 101 Carbon Dioxide 24 Anion Gap 15.6 BUN 23 H Creatinine 1.43 H BUN/Creatinine Ratio 16.1 Random Glucose 121 H Serum Osmolality 278.8 Lactic Acid Calcium 8.9 Total Bilirubin 0.9 AST 18 ALT 15 Alkaline Phosphatase 67 Troponin I C-Reactive Protein B-Natriuretic Peptide 330.0 H* Serum Total Protein 6.9 Albumin 4.3 Globulin 2.6 Albumin/Globulin Ratio 1.7 04/05/20 04/05/20 04/05/20 11:00 11:00 11:00 WBC RBC Hgb Hct MCV MCH MCHC RDW Plt Count MPV Absolute Neuts (auto) Absolute Lymphs (auto) Absolute Monos (auto) Absolute Eos (auto) Absolute Basos (auto) Neutrophils % Lymphocytes % Monocytes % Eosinophils % Basophils % ESR D-Dimer, Quantitative Sodium Potassium Chloride Carbon Dioxide Anion Gap BUN Creatinine BUN/Creatinine Ratio Random Glucose Serum Osmolality Lactic Acid 1.6 Calcium Total Bilirubin AST ALT Alkaline Phosphatase Troponin I < 0.02 C-Reactive Protein 0.9 B-Natriuretic Peptide Serum Total Protein Albumin Globulin Albumin/Globulin Ratio 04/05/20 04/05/20 11:00 12:40 WBC RBC Hgb Hct MCV MCH MCHC RDW Plt Count MPV Absolute Neuts (auto) Absolute Lymphs (auto) Absolute Monos (auto) Absolute Eos (auto) Absolute Basos (auto) Neutrophils % Lymphocytes % Monocytes % Eosinophils % Basophils % ESR 10 D-Dimer, Quantitative Sodium Potassium Chloride Carbon Dioxide Anion Gap BUN Creatinine BUN/Creatinine Ratio Random Glucose Serum Osmolality Lactic Acid Calcium Total Bilirubin AST ALT Alkaline Phosphatase Troponin I < 0.02 C-Reactive Protein B-Natriuretic Peptide Serum Total Protein Albumin Globulin Albumin/Globulin Ratio - EKG/XRAY/CT EKG: Sinus - Normal sinus rhythm, heart rate 50, no ST elevations or Q waves noted, axis normal, intervals normal, no prior EKG for comparison. XRAY: chest - There is some right perihilar interstitial opacification but does not seem significantly changed from prior chest x-ray per my read, otherwise no acute processes - Additional EKG/XRAY/Consults EKG #2: Unchanged from - initial Departure - Departure Clinical Impression: Musculoskeletal chest pain Time of Disposition: 15:24 Disposition: Discharge to Home or Self Care Condition: Good Instructions: Chest Pain (DC) Diet: resume usual diet Activity: increase activity as tolerated Referrals: Dominic Lanza III, MD [Primary Care Provider] - 1-2 Weeks Home Medications: Ambulatory Orders ALPRAZolam [Xanax] 0.5 mg PO BEDTIME 06/12/17 B-Complex W/ Folic Acid [B Complex] 1 tab PO DAILY 06/12/17 Biotin [Super Biotin] 5,000 mcg PO DAILY 06/12/17 Calcium Carbonate-Vitamin D [Calcium + D3 600-200 mg-Unit] 1 tab PO BID 06/12/17 Lamotrigine 100 mg PO BEDTIME 06/12/17 Levothyroxine Sodium [Synthroid] 112 mcg PO DAILY 06/12/17 Magnesium [Magnesium 400 mg] 1 tab PO BID 06/12/17 Multiple Vitamins W/ Minerals [Multivitamin Adults] 1 tab PO DAILY 06/12/17 Mycophenolate Mofetil [Cellcept] 2 capsule PO BID 06/12/17 Pantoprazole Sodium 40 mg PO DAILY 06/12/17 Prednisone 7.5 mg PO DAILY 06/12/17 Sulfa/Trimeth 800/160 (Ds) Tab [Bactrim DS] 1 tablet PO MOWEFR 06/12/17 Sumatriptan Succinate [Imitrex] 100 mg PO PRN PRN 06/12/17 Tacrolimus [Prograf] 1.5 mg PO DAILY 06/12/17 Tramadol HCl 50 mg PO Q4HR PRN 06/12/17 Zinc 50 mg PO DAILY 06/12/17 Acetaminophen [Tylenol] 2 tablet PO Q4HR PRN 12/13/18 Albuterol Sulfate [Proair Hfa] 2 puff INH Q6H PRN 12/13/18 Butalbital-Acetaminophen [Butalbital/Acetaminophen 50-300 mg] 1 tab PO Q6HR PRN 12/13/18 Cholecalciferol [Vitamin D-3] 5,000 unit PO DAILY 12/13/18 Colestipol HCl 1 gm PO DAILY 12/13/18 Furosemide [Lasix] 20 mg PO DAILY 12/13/18 Gabapentin 2 capsule PO BID 12/13/18 Hydralazine HCl [Hydralazine Hydrochloride] 10 mg PO BID 12/13/18 Ipratropium/Albuterol [Duoneb] 3 ml NEB QID PRN 12/13/18 Loperamide Cap [Imodium Cap] 2 mg PO QID PRN 12/13/18 Loratadine [Claritin] 10 mg PO DAILY 12/13/18 Nutritional Supplements [Estroven Pm] 1 tab PO BEDTIME 12/13/18 Propranolol HCl [Propranolol Hydrochloride] 60 mg PO BID 12/13/18 Risedronate Sodium [Actonel] 35 mg PO WKLY 12/13/18 Tacrolimus [Prograf] 2 mg PO DAILY 12/13/18 Valganciclovir HCl [Valcyte] 450 mg PO MOWEFR 12/13/18 Venlafaxine HCl 37.5 mg PO BID 12/13/18 Additional Instructions: Remain well-hydrated and gradually advance your diet activity level as tolerated. You tested negative today for flu and COVID-19. Your chest pain is likely from inflammation in the chest wall. You may continue to take [id number] medication such as Tylenol 650 mg every 6 hours as needed. You may take the tramadol as directed for breakthrough pain. Return to the ED if you develop concerning symptoms such as worsening of chest pain or change in chest pain, shortness of breath, etc. Follow-up with your primary care doctor is recommended in the next 1 to 2 weeks for repeat evaluation or sooner as needed.
--- NOTE | 2020-04-05 11:06 | RAD ---
EXAM DESCRIPTION: Chest,1 View CLINICAL HISTORY: 69 years Female, dyspnea, cough COMPARISON: 12/13/2018 TECHNIQUE: 2 view radiograph of the chest. IMPRESSION: Stable enlarged cardiac silhouette. Partially calcified aorta. Not significantly changed airspace opacities throughout the right lung. Left lung remains clear. Mild elevation versus eventration of the hemidiaphragm as before. No pleural effusion or pneumothorax. Thoracic spondylosis. Lower cervical fusion. Electronically signed by: Wes Stovall MD 04/05/2020 11:04 AM [facility]
[2020-04-05] MEDS ORDERED: SODIUM CHLORIDE 0.9% 500ML 500 ML IVS ONE (11:37)
[2020-04-05] MEDS ORDERED: ACETAMINOPHEN 325 MG TAB PO ONE (11:37)
[2020-04-05] MEDS ORDERED: KETOROLAC TROMETHAMINE INJ 30 MG/ML VIAL IV ONE (11:37)
[2020-04-05 16:17] VITALS: BP 124/81; TEMP 98.3; O2SAT 99
== END 2020-04-05 15:40 | disposition home or self-care (01) ==
LOC: ER 10:29
DX: R07.89 Other chest pain (principal); F41.9 Anxiety disorder, unspecified; K21.9 Gastro-esophageal reflux disease without esophagitis; I10 Essential (primary) hypertension; R56.9 Unspecified convulsions; J44.9 Chronic obstructive pulmonary disease, unspecified; E07.9 Disorder of thyroid, unspecified; Z20.828 Contact with and (suspected) exposure to other viral communicable diseases; Z94.2 Lung transplant status; Z87.09 Personal history of other diseases of the respiratory system; Z86.73 Personal history of transient ischemic attack (TIA), and cerebral infarction without residual deficits; Z79.899 Other long term (current) drug therapy; Z87.891 Personal history of nicotine dependence; Z88.8 Allergy status to other drugs, medicaments and biological substances; Z88.5 Allergy status to narcotic agent
CPT/HCPCS: 36415; 71045; 80053; 83605; 83880; 84484; 85025; 85379; 85651; 86140; 87502; 87635; 93005; 94760; A4216; J1885; J7040

== ENCOUNTER → 2020-06-11 | Outpatient (CLI) | payer MEDICARE, OTHER | LOC: LAB.O 10:00 | PROVIDERS: ATTEND Internal Medicine Pulmonary Disease | DX: Z94.2 Lung transplant status (principal); Z79.899 Other long term (current) drug therapy ==